=== PATIENT | male | born 1950 | race Caucasian/White ===

== ENCOUNTER → 2017-10-07 | Outpatient (CLI) | payer MEDICARE, OTHER ==
--- NOTE | 2017-10-07 08:31 | MR ---
EXAMINATION TYPE: MR shoulder RT wo con DATE OF EXAM: 10/07/2017 COMPARISON: Outside right shoulder x-ray September 17, 2017. HISTORY: Right shoulder pain with difficulty raising overhead for 3 weeks per patient. TECHNIQUE: Multiplanar, multisequence imaging of the right shoulder is performed without contrast. FINDINGS: Rotator Cuff: There is increased signal in distal supraspinatus and infraspinatus tendons. There is s ome fraying at articular surface in both seen best parasagittal image 24 with larger involvement invo lving the infraspinatus tendon. There is subdeltoid/subacromial fluid. Subscapularis tendon is intact . Rotator cuff is preserved. Acromioclavicular Joint: There is moderate to severe joint space loss with moderate capsular hypertro phy, loss of inferior fat plane is noted. Distal acromion morphology is slightly downsloping. Glenohumeral Joint: Joint space narrowing with cartilaginous thinning and small glenohumeral joint ef fusion is appreciated. No significant spurring is seen. Labrum: Degenerative change superior labrum with blunted appearance since increased signal is noted. Biceps Tendon: The long head of biceps is in normal location within bicipital groove. Bone marrow signal: Heterogeneity consistent with red marrow reconversion is present. Mild scattered subchondral cystic change and humeral head is noted. Other: No additional significant abnormality is appreciated. IMPRESSION: Tendinosis and partial tears of supraspinatus and infraspinatus tendons. Moderate to matthew re subdeltoid/subacromial bursitis. Osteoarthritic changes most prominent at acromioclavicular joint with suggestion of underlying impingement.
== END ==
LOC: RADMRIMAIN 07:41
PROVIDERS: ATTEND Orthopaedic Surgery
DX: S46.011A Strain of muscle(s) and tendon(s) of the rotator cuff of right shoulder, initial encounter (principal)

== ENCOUNTER → 2017-10-16 | Outpatient (CLI) | payer MEDICARE, OTHER | END | disposition home or self-care (01) | LOC: LABWHC1 13:28 | PROVIDERS: ATTEND Urology | DX: C61 Malignant neoplasm of prostate (principal); R97.21 Rising PSA following treatment for malignant neoplasm of prostate | CPT/HCPCS: 36415; 84153 ==

== ENCOUNTER → 2017-11-18 | Outpatient (CLI) | payer MEDICARE, OTHER ==
[2017-11-18 09:43] LABS: Basophils % (A) 1 %; Eosinophils # (A) 0.2 k/uL (0-0.7); Eosinophils % (A) 4 %; HCT 44.4 % (39.0-53.0); HGB 15.3 gm/dL (13.0-17.5); Lymphocytes # (A) 1.1 k/uL (1.0-4.8); Lymphocytes % (A) 18 %; MCHC 34.4 g/dL (31.0-37.0); MCV 90.2 fL (80.0-100.0); Mean Platelet Volume 7.8; Monocytes # (A) 0.4 k/uL (0-1.0); Monocytes % (A) 6 %; Neutrophils # (A) 4.2 k/uL (1.3-7.7); Neutrophils % (A) 70 %; Platelet Count 166 k/uL (150-450); RBC 4.92 m/uL (4.30-5.90); RDW 13.6 % (11.5-15.5); WBC 5.9 k/uL (3.8-10.6)
[2017-11-18 09:50] LABS: Potassium 4.4 mmol/L (3.5-5.1)
== END | disposition home or self-care (01) ==
LOC: LABPAT 08:39
PROVIDERS: ATTEND Orthopaedic Surgery
DX: Z01.812 Encounter for preprocedural laboratory examination (principal); M75.41 Impingement syndrome of right shoulder
CPT/HCPCS: 36415; 80051; 85025

== ENCOUNTER 2017-11-27 07:49 | Day surgery (SDC) | payer MEDICARE, OTHER ==
[2017-11-21 15:50] VITALS: BMI 29.5
--- NOTE | 2017-11-26 19:44 | HP ---
HISTORY AND PHYSICAL HISTORY: Genaro Herrera is a 67-year-old patient seen with right shoulder pain consistent with impingement and rotator cuff tear. Treatment options were discussed. He elected to proceed with arthroscopy. Consent was obtained. PAST MEDICAL HISTORY: Hypothyroidism. PAST SURGICAL HISTORY: Noncontributory. DAILY MEDICATIONS: 1. Prilosec. 2. Synthroid. ALLERGIES: KEFLEX. SOCIAL HISTORY: The patient denies tobacco use. PHYSICAL EXAMINATION: Evaluation right shoulder: Flexion 160 degrees, abduction 150 degrees, external rotation is 30 degrees with weakness. Tenderness along the anterolateral acromion and rotator cuff insertion site. Impingement sign positive 100 degrees. Drop-arm sign positive. Distal neurovascular exam intact. RADIOGRAPHS: Radiographs of the right shoulder revealed a type 2 anterior acromion. Cystic changes of the greater tuberosity. An MRI of the right shoulder revealed a partial rotator cuff tear, impingement, and acromioclavicular joint osteoarthritis. IMPRESSION: 1. Right shoulder impingement with rotator cuff tear. 2. Right shoulder acromioclavicular osteoarthritis. PLAN: Right shoulder arthroscopy with subacromial decompression, probable arthroscopic rotator cuff repair, possible Jena procedure and debridement. MMODL / IJN: [id number] /
[~2017-11-27 07:49] MED LIST: CLINDAMYCIN 900 MG in DEXTROSE 5% IN WATER 50 ML IVPB ONE
[2017-11-27] MEDS ORDERED: MIDAZOLAM 2 MG/2 ML VIAL ONE ×2 (08:42→09:59)
[2017-11-27] MEDS ORDERED: ONDANSETRON 4 MG/2 ML VIAL ONE (08:42)
[2017-11-27] MEDS ORDERED: LIDOCAINE 1% 20 ML VIAL (10MG/ML) FOR IV START INTRADERMA ONE (08:45)
[2017-11-27 08:48] VITALS: RESP 16
[2017-11-27] MEDS ORDERED: LACTATED RINGERS 1,000 ML IV ONE ×2 (09:07→11:19)
[2017-11-27] MEDS ORDERED: SUCCINYLCHOLINE CHLORIDE 100 MG/5 ML SYR IV ONE (09:59)
[2017-11-27] MEDS ORDERED: NEOSTIGMINE 1 MG/ML 10 ML VIAL ONE (09:59)
[2017-11-27] MEDS ORDERED: GLYCOPYRROLATE 0.2 MG/ML 2 ML VIAL ONE (09:59)
[2017-11-27] MEDS ORDERED: ROCURONIUM BROMIDE 10 MG/ML 10 ML VIAL IV ONE (09:59)
[2017-11-27] MEDS ORDERED: fentaNYL (PF) 50 MCG/ML 2 ML AMP ONE (09:59)
[2017-11-27] MEDS ORDERED: LIDOCAINE 1% INJ 10MG/ML (20 ML MDV) ONE (09:59)
[2017-11-27] MEDS ORDERED: PROPOFOL 10 MG/ML 20 ML VIAL IV ONE (09:59)
--- NOTE | 2017-11-27 11:49 | P.OP ---
Date of Procedure: 11/27/17 Preoperative Diagnosis: Right shoulder impingement Postoperative Diagnosis: 1. Right shoulder rotator cuff tear 2. Right shoulder impingement 3. Right shoulder acromioclavicular joint osteoarthritis 4. Right shoulder partial long head biceps tendon tear 5. Right shoulder superficial labral tear Procedure(s) Performed: 1. Right shoulder arthroscopic rotator cuff repair 2. Right shoulder arthroscopic subacromial decompression 3. Right shoulder arthroscopic Jena procedure 4. Right shoulder arthroscopic biceps tenotomy 5. Right shoulder arthroscopic debridement labral tear Implants: 4Arthrex swivel lock anchors Anesthesia: GETA, regional (Interscalene block) Surgeon: Vahe Ace Radiology Administrator #1: Jasbir Perdomo Estimated Blood Loss (ml): 12 Pathology: none sent Condition: stable Disposition: PACU Indications for Procedure: 67-year-old patient seen with progressive right shoulder pain. After having treatment options discussed, he elected to proceed with arthroscopy. Operative Findings: See description of procedure Description of Procedure: Patient underwent an interscalene block by department of anesthesia. The patient was then taken to the operative suite. The patient underwent a general anesthetic by the department of anesthesia. The patient was placed into a lateral position and secured. There was appropriate padding of the bony prominence. Right shoulder was then prepped and draped in normal sterile orthopedic fashion. We placed the extremity in 10 pounds of longitudinal traction. A posterior incision was now made for a posterior working portal site. The trocar and cannula were inserted into the glenohumeral joint. Arthroscopy was initiated. Spinal needle was now inserted anteriorly, to ascertain the anterior working portal site. An incision was now made in that area, a trocar was inserted followed by a probe. There was superficial tearing of the anterior and superior labrum. There was partial tearing and hyperemia long head biceps tendon. There were grade 1 chondromalacia changes of the glenohumeral joint with no osteochondral tears present. I could visualize a full-thickness rotator cuff tear. I performed an arthroscopic biceps tenotomy. I debrided the superficial labral tears down to stable tissue. The residual labrum was stable. Instruments now removed from glenohumeral joint. Utilizing the posterior working portal site, the trocar and cannula were inserted into the subacromial space. Arthroscopy initiated. I made an incision 2 fingerbreadths lateral to the acromion. I introduced my trocar followed by my Ar[employer]Care ablator. I now began ablating thick subacromial bursal tissue, which exposed the undersurface of the anterior acromion. There was diminished subacromial space. There was a very prominent anterior acromion. A motorized bur was introduced and a subacromial decompression was performed. I also excised some osteophytes off the inferior aspect of the distal clavicle. The AC joint was visualized and noted to be fairly arthritic. The motorized bur was introduced in the anterior portal site and a Jena procedure was performed without difficulty, decompressing the AC joint nicely. I turned my attention to the rotator cuff. There was a 2.5 cm rotator cuff tear. I debrided the margins getting down to stable tendon tissue. I introduced my motorized bur and abraded the footprint area, getting some petechial bleeding. I now made an accessory portal site off the lateral aspect of the acromion. I punched 2 holes medial for medial row fixation with the assistance of Salvador MCMULLEN carefully tapping the punch with a mallet as I held the punch and the camera. I now introduced both anchors into the pre-punched holes and Salvador MCMULLEN tapped them with the mallet as I held anchors and the camera. Salvador MCMULLEN now screwed the anchors in place a while I held the anchor guide and camera. All 8 limbs of suture were now passed through good bites of rotator cuff tendon. I now punched 2 holes for lateral row fixation again I held the punch and camera while Salvador MCMULLEN used a mallet to tap in the punch. We now passed sutures through both anchors and individually I introduced the anchors into the pre- punch holes I held the anchor guide in position with one hand holding the camera with the other hand while Salvador MCMULLEN tensioned the sutures and screwed in the anchors one at a time. All residual suture limbs were now clipped. We had good compression of the tendon along the entire footprint. I injected 1 mL Renue intra-articular. Instruments now removed from the portal sites. All portal sites were approximated with nylon suture. Sterile dressings were applied followed by a shoulder immobilizer. Jasbir MCMULLEN assisted in this complex case. The patient was awakened, transferred to a bed, and taken to recovery in stable condition.
[2017-11-27 11:57] VITALS: TEMP 97.1
[2017-11-27] MEDS ORDERED: ONDANSETRON 4 MG/2 ML VIAL IVP ONE (12:34)
--- NOTE | 2017-11-27 13:20 | P.ONQ ---
Anesthesiology Proc Note - PNB - Peripheral Nerve Block Performed Right Interscalene Procedure Start Time: 08:58 Procedure Stop Time: 09:14 Indication: Acute Post-Operative Pain, Requested by physician (Dr Ace) Sedation Type: Sedate with meaningful contact maintained Preparation: Sterile Prep Position: Supine Catheter: None Needle Types: Other (see comment) (Mario) Needle Size: 50mm (2") Needle Gauge: 21 Technique: Ultrasound (0.5% Ropivacaine 14cc, 2% Lidocaine with 1:200,00 epi 14cc) Blood Aspirated: No Pain Paresthesia on Injection Noted: No Resistance on Injection: Normal Events: Uneventful and Well Tolerated
[2017-11-27 13:28] VITALS: BP 131/82
[2017-11-27 14:16] VITALS: PULSE 86
== END 2017-11-27 14:53 | disposition home or self-care (01) ==
LOC: OR 07:49
PROVIDERS: ATTEND Orthopaedic Surgery
DX: M75.101 Unspecified rotator cuff tear or rupture of right shoulder, not specified as traumatic (principal); S43.431A Superior glenoid labrum lesion of right shoulder, initial encounter; M19.011 Primary osteoarthritis, right shoulder; M75.41 Impingement syndrome of right shoulder; S46.111A Strain of muscle, fascia and tendon of long head of biceps, right arm, initial encounter; M25.711 Osteophyte, right shoulder; M94.211 Chondromalacia, right shoulder; E03.9 Hypothyroidism, unspecified; Z79.899 Other long term (current) drug therapy; Z88.1 Allergy status to other antibiotic agents
CPT/HCPCS: 29827; 29826; 29824; 64415; C1713 ×3; C1765; J2250; J2710; J2405; J2001; J3010; J0330; J2704

== ENCOUNTER → 2017-12-28 | Outpatient (CLI) | payer MEDICARE, OTHER ==
--- NOTE | 2017-12-29 08:27 | PE ---
EXAMINATION TYPE: PET CT fusion skull to thigh DATE OF EXAM: 12/28/2017 COMPARISON: Outside CT thoracic spine report December 20, 2017. MRI right shoulder October 07, 2017. HISTORY: Prostate cancer 2002 with prostatectomy. Had extraprostatic disease at surgery with new donn vating PSA values up to 0.6 January 29, 2017. Recent abnormal outside CT. TECHNIQUE: Following the intravenous administration of 13.926 mCi of F-18 FDG, whole body images are performed from the skull base to the midthigh. Images are reviewed on the computer in the coronal, axial, and sagittal planes. Reconstructed rotating images are created on independent workstation and reviewed on the computer. A localization noncontrast CT is performed in conjunction with the PET s can. SCAN: Initial Scan FINDINGS: SKULL BASE AND NECK: No suspicious hypermetabolic uptake is seen. CHEST, MEDIASTINUM, AND HILAR REGION: There are suspicious subcentimeter right hilar and subcarinal l ymph nodes axial image 84, largest subcarinal region measures 1.2 x 0.7 cm, max SUV is 4.56 at this l evel. ABDOMEN AND PELVIS: Mild diffuse uptake throughout liver is present without suspicious focal uptake o r focal lesion. Surgical changes from prostatectomy with numerous bilateral clips near axial image 23 4 present. No suspicious recurrent hypermetabolic pelvic adenopathy clearly seen. Normal excretion in bladder makes evaluation slightly suboptimal. No areas of suspicious hypermetabolic uptake clearly i dentified. OSSEOUS STRUCTURES: Mild increase uptake throughout right shoulder is presumed postinflammatory when correlating with recent MRI. Marked sclerosis of the T9 vertebra axial image 108 is present with bilateral pedicle extension which correlates with outside CT, mild increased hypermetabolic uptake is seen, max SUV is 2.92. There is likely bilateral laminal involvement axial image 108. No additional definitive sclerotic or hypermetabolic osseous lesions seen. OTHER CT: There is 1.9 x 1.1 cm mucous retention cyst or polyp in the posterior inferior left maxilla ry sinus. Suspect bilateral greater than 1 cm thyroid nodules axial image 52, follow-up thyroid ultrasound advi sed to further evaluate and characterize. Background mild underlying emphysematous change is present. Heart size is mildly enlarged. Coronary artery calcification is present which is noted marker for cor onary artery disease. Ascending aorta measures up to 4.1 cm diameter axial image 83. There is multilevel spurring in the spine. There is facet arthropathy lower lumbar spine. There is 2.4 cm splenule in splenic hilum axial image 142. IMPRESSION: 1. T9 osseous metastatic lesion felt present. Nonspecific but suspicious subcentimeter right hilar an d subcarinal lymph nodes. No convincing evidence for additional osseous metastatic disease or local n eoplastic recurrence. 2. Incidental 4.1 cm ascending aortic aneurysm. Thyroid nodules, advise follow-up thyroid ultrasound to better evaluate and characterize.
== END | disposition home or self-care (01) ==
LOC: RADPETMAIN 12:21
PROVIDERS: ATTEND Urology
DX: C61 Malignant neoplasm of prostate (principal); M89.8X8 Other specified disorders of bone, other site; I71.2 Thoracic aortic aneurysm, without rupture; E04.2 Nontoxic multinodular goiter
CPT/HCPCS: 78815; A9552

== ENCOUNTER → 2018-04-05 | Outpatient (CLI) | payer MEDICARE, OTHER | END | disposition home or self-care (01) | LOC: LABWHC1 10:42 | PROVIDERS: ATTEND Urology | DX: C61 Malignant neoplasm of prostate (principal) | CPT/HCPCS: 36415; 84153; 84403 ==

== ENCOUNTER → 2018-04-05 | Outpatient (CLI) | payer MEDICARE, OTHER ==
--- NOTE | 2018-04-05 12:50 | PE ---
EXAMINATION TYPE: PET CT fusion skull to thigh DATE OF EXAM: 04/05/2018 COMPARISON: Prior PET/CT December 28, 2017. HISTORY: History of prostate cancer treated surgically 2002 TECHNIQUE: Following the intravenous administration of 10.89 mCi of F-18 FDG, whole body images are performed from the skull base to the midthigh. Images are reviewed on the computer in the coronal, a xial, and sagittal planes. Reconstructed rotating images are created on independent workstation and reviewed on the computer. A noncontrast CT is performed in conjunction with the PET scan. SCAN: Subsequent Scan FINDINGS: SKULL BASE AND NECK: No new areas of suspicious hypermetabolic uptake are present. CHEST, MEDIASTINUM, AND HILAR REGION: Interval improvement in abnormal hypermetabolic uptake right hi lar subcarinal region, right hilar lymph node measures 1.7 x 0.8 cm current study axial image 101 wit hout significant hypermetabolic uptake on current study. No new areas of suspicious hypermetabolic up take are present. ABDOMEN AND PELVIS: Surgical changes from prostatectomy with numerous surgical clips in the pelvis ne ar axial image 246 are redemonstrated. No obvious new suspicious masses or hypermetabolic uptake. Nor mal excretion in bladder is noted. There is single focus of hypermetabolic uptake right posterior thi gh with max SUV 3.53 axial image 240 corresponding to regular 1.2 x 0.7 cm soft tissue focus. OSSEOUS STRUCTURES: No new areas of hypermetabolic uptake are identified. Improved hypermetabolic upt dmitry at level of right shoulder is noted. Stable sclerotic appearance T9 level axial image 120 involvi ng vertebra diffusely extending into the pedicles and bilateral lamina as well as transverse processe s without hypermetabolic uptake currently. Stable nonspecific subcentimeter sclerotic focus right sca pula laterally axial image 65 without hypermetabolic uptake. OTHER CT: There is 1.7 cm 1 cm mucous retention cyst or polyp in the posterior inferior left maxillar y sinus axial image 34 redemonstrated. Suspect bilateral subcentimeter thyroid nodules redemonstrated. Background mild underlying emphysematous change is present. Heart size is mildly enlarged. Coronary a rtery calcification is present which is noted marker for coronary artery disease. Ascending aorta cecilio sures up to 4.3 cm diameter axial image 96 on current study. Mild symmetric fat stranding over the lateral mid abdomen anterior abdominal wall axial image 187 is noted. Correlate clinically. There is multilevel spurring in the spine. There is facet arthropathy lower lumbar spine. IMPRESSION: 1. Interval improvement in mildly hypermetabolic uptake right hilar and subcarinal regions. Stable sc lerotic T9 vertebra without hypermetabolic uptake suspicious for focal osseous metastatic lesion. No new areas of hypermetabolic uptake are present.
== END | disposition home or self-care (01) ==
LOC: RADPETMAIN 07:36
PROVIDERS: ATTEND Urology
DX: C61 Malignant neoplasm of prostate (principal); R94.8 Abnormal results of function studies of other organs and systems
CPT/HCPCS: 84153; 84403; 78815; 36415; A9552

== ENCOUNTER → 2018-08-04 | Outpatient (CLI) | payer MEDICARE, OTHER | END | disposition home or self-care (01) | LOC: LABWHC1 13:37 | PROVIDERS: ATTEND Urology | DX: C61 Malignant neoplasm of prostate (principal); R97.21 Rising PSA following treatment for malignant neoplasm of prostate | CPT/HCPCS: 36415; 84153 ==

== ENCOUNTER 2021-09-26 14:12 | Observation (INO) | payer MEDICARE, OTHER ==
[2021-09-26 17:25] LABS: Anisocytosis Slight; HCT 23.3 % (39.0-53.0); HGB 8.1 gm/dL (13.0-17.5); MCHC 34.8 g/dL (31.0-37.0); MCV 92.2 fL (80.0-100.0); Mean Platelet Volume 12.1; Poikilocytosis Moderate; RBC 2.53 m/uL (4.30-5.90); RDW 18.5 % (11.5-15.5)
[2021-09-26 17:27] LABS: Albumin 3.9 g/dL (3.5-5.0); Calcium 7.3 mg/dL (8.4-10.2); Potassium 4.8 mmol/L (3.5-5.1); Total Bilirubin 0.9 mg/dL (0.2-1.3); Total Protein 6.8 g/dL (6.3-8.2)
[2021-09-26 17:31] LABS: INR 1.2 (<1.2); Prothrombin Time 12.5 sec (9.0-12.0)
[2021-09-26 17:34] LABS: Platelet Count 36 k/uL (150-450)
--- NOTE | 2021-09-26 17:41 | XR ---
EXAMINATION TYPE: XR chest 2V DATE OF EXAM: 09/26/2021 5:16 PM COMPARISON: PET/CT 04/05/2017 TECHNIQUE: XR chest 2V Frontal and lateral views of the chest. CLINICAL INDICATION:Male, 71 years old with history of coughing up blood.; FINDINGS: Lungs/Pleura: There is no evidence of pleural effusion, focal consolidation, or pneumothorax. Pulmonary vascularity: Unremarkable. Heart/mediastinum: Cardiomediastinal silhouette is unremarkable. Musculoskeletal: No acute osseous pathology. Sclerotic vertebrae in the T9 vertebral body as seen on prior. Additionally left scapula sclerosis is noted. IMPRESSION: 1. No acute cardiopulmonary disease/process. 2. T9 vertebral body and left scapula sclerosis which was seen on prior 04/05/2018.
[2021-09-26 18:08] LABS: Anisocytosis (M) Present; Band Neutrophils % 18 %; Large Platelets Present; Lymphocytes # (M) 0.63 k/uL (1.0-4.8); Metamyelocytes # (M) 0.13 k/uL (0); Metamyelocytes % 2 %; Monocytes # (M) 0.76 k/uL (0-1.0); Neutrophils % (M) 58 %; Nucleated Red Blood Cells 15 /100 WBC (0-0); Polychromasia Present; Stomatocytes Present; Tear Drop Cells Present; Total Cells Counted 100; WBC 6.3 k/uL (3.8-10.6)
[2021-09-26] MEDS ORDERED: SODIUM CHLORIDE 0.9% 1,000 ML IV ONE (18:22)
[2021-09-26] MEDS ORDERED: NALOXONE 0.4 MG/ML 1 ML VIAL IV PRN (19:08)
--- NOTE | 2021-09-26 19:09 | ED ---
General Adult HPI - General Chief complaint: Recheck/Abnormal Lab/Rx Stated complaint: Cancer Dr chicas, Platelets are low Source: patient, EMS Mode of arrival: EMS Limitations: no limitations - History of Present Illness Initial comments: 71-year-old male with past history of prostate cancer metastasized to the bone, liver and brain who presents to the emergency department for hemoptysis and epistaxis. He has known thrombocytopenia which has been monitored. He last had his counts drawn on the and his platelet count was 20. He was not having any bleeding at that time. He did have a tele-visit with his oncologist today. He mentioned in the telemetry visit that he was having some bleeding and they recommended that he come into the emergency department for a transfusion. He follows with Dr. Pino at [facility]. Last chemo infusion was on the . On the the patient did require 2 units of packed red blood cells due to anemia. He has never had a platelet transfusion before. He denies any active bleeding at this time. No fevers. He denies chest pain, shortness of breath, abdominal pain. No black or bloody stools. He does have known brain metastasis however denies any head trauma, or recent changes in consciousness, headaches. No other alleviating, die maker apprentice modifying factors - Related Data Home Medications Medication Instructions Recorded Confirmed Calcium Citrate 600mg 600 mg PO QID 09/26/21 09/26/21 Celecoxib [CeleBREX] 200 mg PO BID PRN 09/26/21 09/26/21 Docusate [Colace] 200 mg PO BID 09/26/21 09/26/21 Famotidine [Pepcid] 20 mg PO DAILY 09/26/21 09/26/21 Gabapentin 300 mg PO BID PRN 09/26/21 09/26/21 HYDROcodone/APAP 10-325MG [[place] 1 tab PO Q4HR PRN 09/26/21 09/26/21 10-325] Levothyroxine Sodium [Synthroid] 75 mcg PO DAILY 09/26/21 09/26/21 Nirmatrelvir/Ritonavir [Paxlovid 1 dose PO BID 09/26/21 09/26/21 2X150 mg-100 mg (Eua)] Prochlorperazine [Compazine] 10 mg PO Q6H PRN 09/26/21 09/26/21 Sennosides [Senokot] 8.6 mg PO DAILY 09/26/21 09/26/21 Venlafaxine HCl ER [Effexor XR] 37.5 mg PO DAILY 09/26/21 09/26/21 dexAMETHasone 4 mg PO DAILY 09/26/21 09/26/21 fentaNYL 50MCG/HR PATCH [Duragesic 1 patch TRANSDERM Q72H 09/26/21 09/26/21 50MCG/HR] Previous Rx's Medication Instructions Recorded Tamsulosin [Flomax] 0.4 mg PO DAILY #30 cap 09/27/21 dronabinoL [Marinol] 5 mg PO AC-BID 3 Days #30 cap 09/27/21 Allergies Allergy/AdvReac Type Severity Reaction Status Date / Time cephalexin [From Keflex] Allergy lip and Verified 09/26/21 18:58 eye swelling Review of Systems ROS Statement: Those systems with pertinent positive or pertinent negative responses have been documented in the HPI. ROS Other: All systems not noted in ROS Statement are negative. Past Medical History Past Medical History: Cancer, GERD/Reflux, Hyperlipidemia, Thyroid Disorder Additional Past Medical History / Comment(s): hx ulcers 2009, occ acid reflux, arthritis in hand, no rx for cholesterol, hx prostate cancer History of Any Multi-Drug Resistant Organisms: None Reported Past Surgical History: Orthopedic Surgery, Prostate Surgery Additional Past Surgical History / Comment(s): fx left leg(plate and 5 screws), arthroscopy rt knee, Past Anesthesia/Blood Transfusion Reactions: No Reported Reaction Past Psychological History: No Psychological Hx Reported Past Alcohol Use History: Occasional Past Drug Use History: None Reported - Past Family History Mother Family Medical History: No Reported History General Exam Limitations: no limitations General appearance: alert, in no apparent distress, lethargic Head exam: Present: atraumatic, normocephalic, normal inspection Eye exam: Present: normal appearance, PERRL, EOMI. Absent: scleral icterus, conjunctival injection, periorbital swelling ENT exam: Present: normal exam, mucous membranes moist Neck exam: Present: normal inspection. Absent: tenderness, meningismus, lymphadenopathy Respiratory exam: Present: normal lung sounds bilaterally. Absent: respiratory distress, wheezes, rales, rhonchi, stridor Cardiovascular Exam: Present: regular rate, normal rhythm, normal heart sounds. Absent: systolic murmur, diastolic murmur, rubs, gallop, clicks GI/Abdominal exam: Present: soft, normal bowel sounds. Absent: distended, ten derness, guarding, rebound, rigid Extremities exam: Present: normal inspection, full ROM, normal capillary refill. Absent: tenderness, pedal edema, joint swelling, calf tenderness Back exam: Present: normal inspection Neurological exam: Present: alert, oriented X3, CN II-XII intact Psychiatric exam: Present: normal affect, normal mood Skin exam: Present: warm, dry, intact, normal color. Absent: rash Course Vital Signs 09/26/21 09/26/21 09/26/21 15:44 21:47 21:52 Temperature 98.3 F 98.2 F 98.0 F Pulse Rate 97 100 92 Respiratory 18 18 16 Rate Blood Pressure 119/77 158/99 149/91 O2 Sat by Pulse 94 L 95 94 L Oximetry 09/26/21 09/26/21 09/26/21 22:02 22:34 22:35 Temperature 97.9 F 98.0 F 98.0 F Pulse Rate 96 75 76 Respiratory 16 16 16 Rate Blood Pressure 149/85 148/86 148/86 O2 Sat by Pulse 94 L 94 L 94 L Oximetry Medical Decision Making - Medical Decision Making Upon arrival patient was placed into room 5. There are history and physical exam was performed. Laboratory studies were conducted which demonstrates a hemoglobin of 8.1 and a platelet count of 36. I did administer fluids as the reports that the patient is not eating or drinking. Due to active bleeding I did recommend platelet transfusion and admission for oncology. Spoke with Purvi who agreed to admit the patient. Patient agreed to the plan was taken for stable condition - Lab Data Result diagrams: 09/27/21 05:11 09/27/21 05:11 Lab Results 09/26/21 09/26/21 09/26/21 Range/Units 17:03 17:03 17:03 WBC 6.3 (3.8-10.6) k/uL RBC 2.53 L (4.30-5.90) m/uL Hgb 8.1 L (13.0-17.5) gm/dL Hct 23.3 L (39.0-53.0) % MCV 92.2 (80.0-100.0) fL MCH 32.0 (25.0-35.0) pg MCHC 34.8 (31.0-37.0) g/dL RDW 18.5 H (11.5-15.5) % Plt Count 36 L (150-450) k/uL MPV 12.1 Neutrophils % (Manual) 58 % Band Neuts % (Manual) 18 % Lymphocytes % (Manual) 10 % Monocytes % (Manual) 12 % Metamyelocytes % 2 % Neutrophils # (Manual) 4.70 (1.3-7.7) k/uL Lymphocytes # (Manual) 0.63 L (1.0-4.8) k/uL Monocytes # (Manual) 0.76 (0-1.0) k/uL Metamyelocytes # (Man) 0.13 H (0) k/uL Nucleated RBCs 15 H (0-0) /100 WBC Large Platelets Present Polychromasia Present Poikilocytosis Moderate Anisocytosis Slight Anisocytosis (manual) Present Tear Drop Cells Present Stomatocytes Present PT 12.5 H (9.0-12.0) sec INR 1.2 H (<1.2) Sodium 133 L (137-145) mmol/L Potassium 4.8 (3.5-5.1) mmol/L Chloride 102 (98-107) mmol/L Carbon Dioxide 20 L (22-30) mmol/L Anion Gap 11 mmol/L BUN 32 H (9-20) mg/dL Creatinine 1.06 (0.66-1.25) mg/dL Est GFR (CKD-EPI)AfAm 81 (>60 ml/min/1.73 sqM) Est GFR (CKD-EPI)NonAf 70 (>60 ml/min/1.73 sqM) Glucose 178 H (74-99) mg/dL Calcium 7.3 L (8.4-10.2) mg/dL Total Bilirubin 0.9 (0.2-1.3) mg/dL AST 251 H (17-59) U/L ALT 47 (4-49) U/L Alkaline Phosphatase 498 H (38-126) U/L Total Protein 6.8 (6.3-8.2) g/dL Albumin 3.9 (3.5-5.0) g/dL Blood Type Confirm 09/26/21 Range/Units 17:03 WBC (3.8-10.6) k/uL RBC (4.30-5.90) m/uL Hgb (13.0-17.5) gm/dL Hct (39.0-53.0) % MCV (80.0-100.0) fL MCH (25.0-35.0) pg MCHC (31.0-37.0) g/dL RDW (11.5-15.5) % Plt Count (150-450) k/uL MPV Neutrophils % (Manual) % Band Neuts % (Manual) % Lymphocytes % (Manual) % Monocytes % (Manual) % Metamyelocytes % % Neutrophils # (Manual) (1.3-7.7) k/uL Lymphocytes # (Manual) (1.0-4.8) k/uL Monocytes # (Manual) (0-1.0) k/uL Metamyelocytes # (Man) (0) k/uL Nucleated RBCs (0-0) /100 WBC Large Platelets Polychromasia Poikilocytosis Anisocytosis Anisocytosis (manual) Tear Drop Cells Stomatocytes PT (9.0-12.0) sec INR (<1.2) Sodium (137-145) mmol/L Potassium (3.5-5.1) mmol/L Chloride (98-107) mmol/L Carbon Dioxide (22-30) mmol/L Anion Gap mmol/L BUN (9-20) mg/dL Creatinine (0.66-1.25) mg/dL Est GFR (CKD-EPI)AfAm (>60 ml/min/1.73 sqM) Est GFR (CKD-EPI)NonAf (>60 ml/min/1.73 sqM) Glucose (74-99) mg/dL Calcium (8.4-10.2) mg/dL Total Bilirubin (0.2-1.3) mg/dL AST (17-59) U/L ALT (4-49) U/L Alkaline Phosphatase (38-126) U/L Total Protein (6.3-8.2) g/dL Albumin (3.5-5.0) g/dL Blood Type Confirm O Positive Disposition Clinical Impression: Hemoptysis, Epistaxis, Thrombocytopenia, Prostate cancer metastatic to bone Disposition: ADMITTED IP TO THIS [facility] Condition: Stable Is patient prescribed a controlled substance at d/c from ED?: No Time of Disposition: 19:08 Decision to Admit Reason: Admit from EC Decision Date: 09/26/21 Decision Time: 19:08
[2021-09-26] MEDS ORDERED: PROCHLORPERAZINE 10 MG TAB PO PRN (22:24)
[2021-09-26] MEDS ORDERED: HYDROcodone/APAP 10-325MG 1 EACH TAB PO PRN (22:24)
[2021-09-26] MEDS ORDERED: GABAPENTIN 300 MG CAP PO PRN (22:24)
[2021-09-26 22:56] VITALS: TEMP 98.5
[2021-09-27 00:04] VITALS: RESP 18
[2021-09-27 05:05] VITALS: BP 137/76; PULSE 71
[2021-09-27] MEDS ORDERED: LEVOTHYROXINE 75 MCG TAB PO SCH (06:30)
[2021-09-27] MEDS ORDERED: FAMOTIDINE 20 MG TAB PO SCH (09:00)
[2021-09-27] MEDS ORDERED: VENLAFAXINE HCL ER 37.5 MG CAP PO SCH (09:00)
[2021-09-27] MEDS ORDERED: TAMSULOSIN 0.4 MG CAP.ER.24H PO SCH (09:00)
[2021-09-27] MEDS ORDERED: dexAMETHasone 4 MG TAB PO SCH (09:00)
[2021-09-27 09:27] LABS: African American GFR (CKD) 102.7 (60.0-200.0); Albumin 3.5 g/dL (3.8-4.9); Albumin/Globulin Ratio 1.46 (1.60-3.17); Anion Gap 11.8 mmol/L (10.00-18.00); BUN/Creat Ratio 31.38 Ratio (12.00-20.00); Blood Urea Nitrogen 25.1 mg/dL (9.0-27.0); Carbon Dioxide 24.2 mmol/L (20.0-27.5); Globulin 2.4 g/dL (1.6-3.3); Non-African American GFR(CKD) 88.6 (60.0-200.0); Potassium 4.4 mmol/L (3.5-5.5); Total Bilirubin 0.7 mg/dL (0.30-1.20); Total Protein 5.9 g/dL (6.2-8.2)
[2021-09-27] MEDS ORDERED: MELOXICAM 7.5 MG TAB PO PRN (10:22)
--- NOTE | 2021-09-27 10:39 | P.HPIM ---
History of Present Illness Patient was on a 71-year-old male with history of prostate cancer metastatic disease to bone and liver and brain came in to emergency department with epistaxis prothesis found to be thrombocytopenic the symptoms resolved at this time. Patient was comparing of generalized weakness patient appeared to be bit dehydrated with elevated the creatinine of 1.06 was hydrated and presently with creatinine and his 0.8 patient is feeling better at this time. Patient is also on aspirin at home. Patient is complaining of loss of appetite and that he says that's the reason he came to the hospital. Patient last chemotherapy was on and the patient received 2 PRBC transfusion due to anemia. Patient denied any fever chills chest x-ray did not show any pneumonic process rest of the workup is negative patient was bit hyponatremic which resolved at this time. Patient is bit weaker will set up home physical therapy for him at home. REVIEW OF SYSTEMS: CONSTITUTIONAL: No fever. HEENT: No recent visual problems or hearing problems. Denied any sore throat. CARDIOVASCULAR: No chest pain, orthopnea, PND, no palpitations, no syncope. PULMONARY: No shortness of breath, no cough, no hemoptysis. GASTROINTESTINAL: No diarrhea, no nausea, no vomiting, no abdominal pain. NEUROLOGICAL: No headaches, no weakness, no numbness. HEMATOLOGICAL: Denies any bleeding or petechiae. GENITOURINARY: Denies any burning micturition, frequency, or urgency. MUSCULOSKELETAL/RHEUMATOLOGICAL: Denies any joint pain, swelling, or any muscle pain. ENDOCRINE: Denies any polyuria or polydipsia. The rest of the 14-point review of systems is negative. PHYSICAL EXAMINATION: GENERAL: The patient is alert and oriented x3, not in any acute distress. Well developed, well nourished. Slow to respond which is his baseline since his brain metastases. HEENT: Pupils are round and equally reacting to light. EOMI. No scleral icterus. No conjunctival pallor. Normocephalic, atraumatic. No pharyngeal erythema. No thyromegaly. CARDIOVASCULAR: S1 and S2 present. No murmurs, rubs, or gallops. PULMONARY: Chest is clear to auscultation, no wheezing or crackles. ABDOMEN: Soft, nontender, nondistended, normoactive bowel sounds. No palpable organomegaly. MUSCULOSKELETAL: No joint swelling or deformity. EXTREMITIES: No cyanosis, clubbing, or pedal edema. NEUROLOGICAL: Gross neurological examination did not reveal any focal deficits. Does have significant generalized weakness SKIN: No rashes. Assessment and plan epistaxis secondary to thrombocytopenia and the being on aspirin and aspirin will be discontinued at this time patient doesn't have any history of coronary artery disease. Thrombocytopenia secondary to chemotherapy. Patient's epistaxis resolved. Patient will be discharged today -Generalized weakness secondary to cancer and chemotherapy, arrange for home physical therapy at home -Hypervolemic hyponatremia received IV fluids and hyponatremia resolved -Mild acute renal failure which improved with IV fluids -Mildly elevated AST, transaminitis: Secondary to metastatic disease to liver -Mild coagulopathy with INR of 1.2 secondary to liver metastases. -Prostate cancer for which patient follows up at [facility] -Peripheral neuropathy for which patient developed 19 -Cancer pain for which patient is on fentanyl patch and celecoxib for breakthrough pain -Depression -Brain metastases from prostate cancer for which patient is on Decadron which she'll continue -Loss of appetite: Secondary to cancer for which we will prescribe him Marinol. 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, no rx for cholesterol, hx prostate cancer History of Any Multi-Drug Resistant Organisms: None Reported Past Surgical History: Orthopedic Surgery, Prostate Surgery Additional Past Surgical History / Comment(s): fx left leg(plate and 5 screws), arthroscopy rt knee, Past Anesthesia/Blood Transfusion Reactions: No Reported Reaction Past Psychological History: No Psychological Hx Reported Smoking Status: Never smoker Past Alcohol Use History: Occasional Past Drug Use History: None Reported - Past Family History Mother Family Medical History: No Reported History Medications and Allergies Home Medications Medication Instructions Recorded Confirmed Type Calcium Citrate 600mg 600 mg PO QID 09/26/21 09/26/21 History Celecoxib [CeleBREX] 200 mg PO BID PRN 09/26/21 09/26/21 History Docusate [Colace] 200 mg PO BID 09/26/21 09/26/21 History Famotidine [Pepcid] 20 mg PO DAILY 09/26/21 09/26/21 History Gabapentin 300 mg PO BID PRN 09/26/21 09/26/21 History HYDROcodone/APAP 10-325MG [[place] 1 tab PO Q4HR PRN 09/26/21 09/26/21 History 10-325] Levothyroxine Sodium [Synthroid] 75 mcg PO DAILY 09/26/21 09/26/21 History Nirmatrelvir/Ritonavir [Paxlovid 1 dose PO BID 09/26/21 09/26/21 History 2X150 mg-100 mg (Eua)] Prochlorperazine [Compazine] 10 mg PO Q6H PRN 09/26/21 09/26/21 History Sennosides [Senokot] 8.6 mg PO DAILY 09/26/21 09/26/21 History Venlafaxine HCl ER [Effexor XR] 37.5 mg PO DAILY 09/26/21 09/26/21 History dexAMETHasone 4 mg PO DAILY 09/26/21 09/26/21 History fentaNYL 50MCG/HR PATCH [Duragesic 1 patch TRANSDERM Q72H 09/26/21 09/26/21 His tory 50MCG/HR] Tamsulosin [Flomax] 0.4 mg PO DAILY #30 cap 09/27/21 Rx dronabinoL [Marinol] 5 mg PO AC-BID 3 Days #30 cap 09/27/21 Rx Allergies Allergy/AdvReac Type Severity Reaction Status Date / Time cephalexin [From Keflex] Allergy lip and Verified 09/26/21 18:58 eye swelling Physical Exam Vitals: Vital Signs Temp Pulse Pulse Resp BP BP Pulse Ox 09/27/21 05:00 98.5 F 71 18 137/76 95 09/27/21 00:03 18 152/83 93 L 09/26/21 23:00 18 09/26/21 22:55 98.5 F 101 H 16 157/91 91 L 09/26/21 22:35 98.0 F 76 16 148/86 94 L 09/26/21 22:34 98.0 F 75 16 148/86 94 L 09/26/21 22:02 97.9 F 96 16 149/85 94 L 09/26/21 21:52 98.0 F 92 16 149/91 94 L 09/26/21 21:47 98.2 F 100 18 158/99 95 09/26/21 15:44 98.3 F 97 18 119/77 94 L Intake and Output 07/26/22 07/27/22 07/27/22 22:59 06:59 14:59 Intake Total 276 Output Total 700 Balance 276 -700 Intake: Blood Product 276 Platelet Pheresis Pas 276 Psoralen Unit [id number] Output: Urine 700 Straight 700 Other: Voiding Method Diaper Indwelling Catheter Incontinent # Voids 1 Weight 91.172 kg Results CBC & Chem 7: 09/26/21 17:03 09/27/21 05:11 Labs: Abnormal Lab Results - Last 24 Hours (Table) 09/26/21 09/26/21 09/26/21 Range/Units 17:03 17:03 17:03 RBC 2.53 L (4.30-5.90) m/uL Hgb 8.1 L (13.0-17.5) gm/dL Hct 23.3 L (39.0-53.0) % RDW 18.5 H (11.5-15.5) % Plt Count 36 L (150-450) k/uL Lymphocytes # (Manual) 0.63 L (1.0-4.8) k/uL Metamyelocytes # (Man) 0.13 H (0) k/uL Nucleated RBCs 15 H (0-0) /100 WBC PT 12.5 H (9.0-12.0) sec INR 1.2 H (<1.2) Sodium 133 L (137-145) mmol/L Carbon Dioxide 20 L (22-30) mmol/L BUN 32 H (9-20) mg/dL BUN/Creatinine Ratio (12.00-20.00) Ratio Glucose 178 H (74-99) mg/dL Calcium 7.3 L (8.4-10.2) mg/dL AST 251 H (17-59) U/L Alkaline Phosphatase 498 H (38-126) U/L Total Protein (6.2-8.2) g/dL Albumin (3.8-4.9) g/dL Albumin/Globulin Ratio (1.60-3.17) g/dL 09/27/21 Range/Units 05:11 RBC (4.30-5.90) m/uL Hgb (13.0-17.5) gm/dL Hct (39.0-53.0) % RDW (11.5-15.5) % Plt Count (150-450) k/uL Lymphocytes # (Manual) (1.0-4.8) k/uL Metamyelocytes # (Man) (0) k/uL Nucleated RBCs (0-0) /100 WBC PT (9.0-12.0) sec INR (<1.2) Sodium (137-145) mmol/L Carbon Dioxide (22-30) mmol/L BUN (9-20) mg/dL BUN/Creatinine Ratio 31.38 H (12.00-20.00) Ratio Glucose 122 H (74-99) mg/dL Calcium 7.0 L (8.4-10.2) mg/dL AST 339 H (17-59) U/L Alkaline Phosphatase 509 H (38-126) U/L Total Protein 5.9 L (6.2-8.2) g/dL Albumin 3.5 L (3.8-4.9) g/dL Albumin/Globulin Ratio 1.46 L (1.60-3.17) g/dL Thrombosis Risk Factor Assmnt - Choose All That Apply Any of the Below Risk Factors Present?: Yes Each Factor Represents 1 point: Obesity (BMI >25) Other Risk Factors: Yes Each Risk Factor Represents 2 Points: Age 61-74 years, Malignancy Other congenital or acquired thrombophilia - If yes, enter type in comment: No Thrombosis Risk Factor Assessment Total Risk Factor Score: 5 Thrombosis Risk Factor Assessment Level: High Risk
--- NOTE | 2021-09-27 10:40 | P.DS ---
Providers Date of admission: 09/26/21 19:09 Attending physician: Jennifer Vyas Consults: 09/26/21 19:08 Consult Physician Urgent Consulting Provider: Maday Sinha Consult Reason/Comments: thrombocytopenia, metastatic prostate cancer on chemo Do you want consulting provider notified?: Yes Primary care physician: [facility] Course: Refer to my history of present illness for further details Patient Condition at Discharge: Stable Plan - Discharge Summary Discharge Rx Participant: No New Discharge Prescriptions: New dronabinoL [Marinol] 5 mg PO AC-BID 3 Days #30 cap Tamsulosin [Flomax] 0.4 mg PO DAILY #30 cap Continue Calcium Citrate 600mg 600 mg PO QID Levothyroxine Sodium [Synthroid] 75 mcg PO DAILY fentaNYL 50MCG/HR PATCH [Duragesic 50MCG/HR] 1 patch TRANSDERM Q72H Famotidine [Pepcid] 20 mg PO DAILY Gabapentin 300 mg PO BID PRN PRN Reason: Pain Sennosides [Senokot] 8.6 mg PO DAILY Docusate [Colace] 200 mg PO BID Venlafaxine HCl ER [Effexor XR] 37.5 mg PO DAILY Prochlorperazine [Compazine] 10 mg PO Q6H PRN PRN Reason: Nausea Nirmatrelvir/Ritonavir [Paxlovid 2X150 mg-100 mg (Eua)] 1 dose PO BID HYDROcodone/APAP 10-325MG [[place] 10-325] 1 tab PO Q4HR PRN PRN Reason: Pain dexAMETHasone 4 mg PO DAILY Celecoxib [CeleBREX] 200 mg PO BID PRN PRN Reason: Pain Discontinued Aspirin EC [Ecotrin Low Dose] 81 mg PO DAILY Discharge Medication List Calcium Citrate 600mg 600 mg PO QID 09/26/21 [History] Celecoxib [CeleBREX] 200 mg PO BID PRN 09/26/21 [History] Docusate [Colace] 200 mg PO BID 09/26/21 [History] Famotidine [Pepcid] 20 mg PO DAILY 09/26/21 [History] Gabapentin 300 mg PO BID PRN 09/26/21 [History] HYDROcodone/APAP 10-325MG [[place] 10-325] 1 tab PO Q4HR PRN 09/26/21 [History] Levothyroxine Sodium [Synthroid] 75 mcg PO DAILY 09/26/21 [History] Nirmatrelvir/Ritonavir [Paxlovid 2X150 mg-100 mg (Eua)] 1 dose PO BID 09/26/21 [History] Prochlorperazine [Compazine] 10 mg PO Q6H PRN 09/26/21 [History] Sennosides [Senokot] 8.6 mg PO DAILY 09/26/21 [History] Venlafaxine HCl ER [Effexor XR] 37.5 mg PO DAILY 09/26/21 [History] dexAMETHasone 4 mg PO DAILY 09/26/21 [History] fentaNYL 50MCG/HR PATCH [Duragesic 50MCG/HR] 1 patch TRANSDERM Q72H 09/26/21 [History] Tamsulosin [Flomax] 0.4 mg PO DAILY #30 cap 09/27/21 [Rx] dronabinoL [Marinol] 5 mg PO AC-BID 3 Days #30 cap 09/27/21 [Rx] Follow up Appointment(s)/Referral(s): Timmy Morton MD [Primary Care Provider] - 3 Days Discharge Disposition: HOME WITH HOME HEALTH SERVICES
[2021-09-27 12:11] LABS: Anisocytosis (M) 2+; Basophils # (M) 0 X 10*3/uL (0.00-0.10); Eosinophils # (M) 0 X 10*3/uL (0.04-0.35); Immature Platelet Fraction 11.5 % (1.1-6.1); Lymphocytes # (M) 0.23 X 10*3/uL (0.90-5.00); MCH 30.1 pg (27.0-32.0); MCHC 32.7 g/dL (32.0-37.0); MCV 92.1 fL (80.0-97.0); Metamyelocytes % 4 % (0-0); Monocytes # (M) 0.09 X 10*3/uL (0.20-1.00); Myelocytes % 4 % (0-0); NRBC Per 100 WBC 5.6 /100 WBCS (0.0-0.0); Neutrophils # (M) 3.94 X 10*3/uL (2.00-8.90); Neutrophils % (M) 85 %; Platelet Count 28 X 10*3/uL (140-440); Polychromasia 2+; RBC 2.16 X 10*6/uL (4.40-5.60); RDW 17.2 % (11.5-14.5); Tear Drop Cells 2+; WBC 4.64 X 10*3/uL (4.50-10.00)
[2021-09-27 17:41] LABS: HCT 19.9 % (39.6-50.0); HGB 6.5 g/dL (13.0-17.0)
[2021-09-27] MEDS ORDERED: DOCUSATE 100 MG CAP PO SCH (21:00)
--- NOTE | 2021-09-28 08:44 | P.CONS ---
History of Present Illness - Reason for Consult Consult date: 09/27/21 metastatic prostate cancer Requesting physician: Shakila Banegas - Chief Complaint hemoptysis, epistaxis - History of Present Illness Mr. Herrera is a mildly confused very pleasant 71-year-old male with metastatic prostate cancer treated out of [facility]. He does have known metastatic disease to the brain. He was brought to the emergency department because of epistaxis and hemoptysis. It is documented that the patient recently had chemotherapy on September 11 and required packed red blood cell transfusion for anemia. His platelets are 36,000 on admit, 28,000 on 2nd CBC. Hemoglobin 6.8. Medication list shows Celebrex. He is also on oral antiviral for covid infection. Patient is not able to report much of his past history. Currently he is denying any bleeding, no visual evidence of the same. He is not in any pain. 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, no rx for cholesterol, hx prostate cancer History of Any Multi-Drug Resistant Organisms: None Reported Past Surgical History: Orthopedic Surgery, Prostate Surgery Additional Past Surgical History / Comment(s): fx left leg(plate and 5 screws), arthroscopy rt knee, Past Anesthesia/Blood Transfusion Reactions: No Reported Reaction Past Psychological History: No Psychological Hx Reported Smoking Status: Never smoker Past Alcohol Use History: Occasional Past Drug Use History: None Reported - Past Family History Mother Family Medical History: No Reported History Medications and Allergies Home Medications Medication Instructions Recorded Confirmed Type Calcium Citrate 600mg 600 mg PO QID 09/26/21 09/26/21 History Celecoxib [CeleBREX] 200 mg PO BID PRN 09/26/21 09/26/21 History Docusate [Colace] 200 mg PO BID 09/26/21 09/26/21 History Famotidine [Pepcid] 20 mg PO DAILY 09/26/21 09/26/21 History Gabapentin 300 mg PO BID PRN 09/26/21 09/26/21 History HYDROcodone/APAP 10-325MG [[place] 1 tab PO Q4HR PRN 09/26/21 09/26/21 History 10-325] Levothyroxine Sodium [Synthroid] 75 mcg PO DAILY 09/26/21 09/26/21 History Nirmatrelvir/Ritonavir [Paxlovid 1 dose PO BID 09/26/21 09/26/21 History 2X150 mg-100 mg (Eua)] Prochlorperazine [Compazine] 10 mg PO Q6H PRN 09/26/21 09/26/21 History Sennosides [Senokot] 8.6 mg PO DAILY 09/26/21 09/26/21 History Venlafaxine HCl ER [Effexor XR] 37.5 mg PO DAILY 09/26/21 09/26/21 History dexAMETHasone 4 mg PO DAILY 09/26/21 09/26/21 History fentaNYL 50MCG/HR PATCH [Duragesic 1 patch TRANSDERM Q72H 09/26/21 09/26/21 History 50MCG/HR] Tamsulosin [Flomax] 0.4 mg PO DAILY #30 cap 09/27/21 Rx dronabinoL [Marinol] 5 mg PO AC-BID 3 Days #30 cap 09/27/21 Rx Allergies Allergy/AdvReac Type Severity Reaction Status Date / Time cephalexin [From Keflex] Allergy lip and Verified 09/26/21 18:58 eye swelling Physical Exam Vitals: Vital Signs Temp Pulse Pulse Resp BP BP Pulse Ox 09/27/21 05:00 98.5 F 71 18 137/76 95 09/27/21 00:03 18 152/83 93 L 09/26/21 23:00 18 09/26/21 22:55 98.5 F 101 H 16 157/91 91 L 09/26/21 22:35 98.0 F 76 16 148/86 94 L 09/26/21 22:34 98.0 F 75 16 148/86 94 L 09/26/21 22:02 97.9 F 96 16 149/85 94 L 09/26/21 21:52 98.0 F 92 16 149/91 94 L 09/26/21 21:47 98.2 F 100 18 158/99 95 Intake and Output 09/27/21 09/27/21 09/27/21 06:59 14:59 22:59 Output Total 700 Balance -700 Output: Urine 700 Straight 700 Other: Voiding Method Diaper Indwelling Catheter Incontinent # Voids 1 - Constitutional General appearance: average body habitus, cooperative, no acute distress - EENT Eyes: anicteric sclerae, EOMI ENT: hearing grossly normal, normal oropharynx - Neck left supraclavicular LAD - Respiratory Respiratory: bilateral: CTA - Cardiovascular Rhythm: regular Heart sounds: normal: S1, S2 Abnormal Heart Sounds: no systolic murmur, no diastolic murmur, no rub, no S3 Gallop, no S4 Gallop, no click, no other leg Peripheral Edema: bilateral: None - Gastrointestinal General gastrointestinal: no absent bowel sounds, no decreased bowel sounds, no distended, no hepatomegaly, no hyperactive bowel sounds, normal bowel sounds, no organomegaly, no rigid, no scaphoid, soft, no splenomegaly, no tenderness, no umbilical hernia, no ventral hernia - Integumentary Integumentary: pale - Neurologic Neurologic: CNII-XII intact (grossly) - Musculoskeletal Musculoskeletal: generalized weakness, strength equal bilaterally - Psychiatric slow to respond, poor recall Psychiatric: A&O x's 3 Results CBC & Chem 7: 09/27/21 05:11 09/27/21 05:11 Labs: Abnormal Lab Results - Last 24 Hours (Table) 09/27/21 09/27/21 Range/Units 05:11 05:11 RBC 2.16 L (4.40-5.60) X 10*6/uL Hgb 6.5 L* (13.0-17.0) g/dL Hct 19.9 L* (39.6-50.0) % RDW 17.2 H (11.5-14.5) % Plt Count 28 L (140-440) X 10*3/uL Plt Count Comment A Absolute Nucleated RBC 0.26 H (0.00-0.00) X 10*3/uL Metamyelocytes % 4 H (0-0) % Myelocytes % 4 H (0-0) % Lymphocytes # (Manual) 0.23 L (0.90-5.00) X 10*3/uL Monocytes # (Manual) 0.09 L (0.20-1.00) X 10*3/uL Eosinophils # (Manual) 0 L (0.04-0.35) X 10*3/uL NRBC/100 WBC Diff 5.6 H (0.0-0.0) /100 WBCS Immature Plt Fraction 11.5 H (1.1-6.1) % BUN/Creatinine Ratio 31.38 H (12.00-20.00) Ratio Glucose 122 H (70-110) mg/dL Calcium 7.0 L (8.7-10.3) mg/dL AST 339 H (14-35) U/L Alkaline Phosphatase 509 H (41-126) U/L Total Protein 5.9 L (6.2-8.2) g/dL Albumin 3.5 L (3.8-4.9) g/dL Albumin/Globulin Ratio 1.46 L (1.60-3.17) g/dL Assessment and Plan (1) Epistaxis Status: Acute Priority: High Code(s): R04.0 - EPISTAXIS SNOMED Code(s): 398236219 (2) Hemoptysis Status: Acute Priority: High Code(s): R04.2 - HEMOPTYSIS SNOMED Code(s): 00008467 (3) Thrombocytopenia Status: Acute Priority: High Code(s): D69.6 - THROMBOCYTOPENIA, UNSPECIFIED SNOMED Code(s): 513785569 (4) Prostate cancer metastatic to bone Status: Acute Priority: High Code(s): C61 - MALIGNANT NEOPLASM OF PROSTATE; C79.51 - SECONDARY MALIGNANT NEOPLASM OF BONE SNOMED Code(s): 020310235 Plan: No evidence of gross bleeding on exam. Patient has been transfused with platelets for symptoms. He should be receiving a unit of packed red blood cells for hemoglobin less than 7-my understanding is that CBC was returned after the patient was discharged, Attending LOADING AND UNLOADING SUPERVISOR contacted patient to have a repeat lab draw and contact Oncology for transfusion. Recommend holding Celebrex. Return to Primary Oncologist for further follow-up and treatment Doctor attests: I performed a history and physical examination of this patient, developed impression and plan of care. Discussed with dictator. I agree with dictators note, documented as a scribe.
== END 2021-09-27 12:19 | disposition home or self-care (01) ==
LOC: EC 14:12 → 5NMEDONC 19:09
PROVIDERS: ADMIT Hospitalist; ATTEND Hospitalist
DX: D69.59 Other secondary thrombocytopenia (principal); T45.1X5A Adverse effect of antineoplastic and immunosuppressive drugs, initial encounter; C79.31 Secondary malignant neoplasm of brain; C78.7 Secondary malignant neoplasm of liver and intrahepatic bile duct; C79.51 Secondary malignant neoplasm of bone; N17.9 Acute kidney failure, unspecified; E87.1 Hypo-osmolality and hyponatremia; E86.0 Dehydration; U07.1 COVID-19; E07.9 Disorder of thyroid, unspecified; E78.5 Hyperlipidemia, unspecified; K21.9 Gastro-esophageal reflux disease without esophagitis; G89.3 Neoplasm related pain (acute) (chronic); G62.9 Polyneuropathy, unspecified; F32.A Depression, unspecified; Z85.46 Personal history of malignant neoplasm of prostate; Z79.899 Other long term (current) drug therapy; Z79.890 Hormone replacement therapy; Z79.82 Long term (current) use of aspirin; Z79.1 Long term (current) use of non-steroidal anti-inflammatories (NSAID); Z92.21 Personal history of antineoplastic chemotherapy
CPT/HCPCS: 36430; 99284; 36415; 86900; 86901; 80053 ×2; 85025 ×2; 85610; 86850; 71046; G0378 ×2; P9073; S0183; J8540